=== PATIENT | male | born 1990 | race Caucasian/White ===

== ENCOUNTER 2016-11-10 08:15 | Emergency (ER) | payer MEDICAID ==
[2016-11-10 09:18] LABS: ACETAMINOPHEN < 10 ug/mL (10-30)
[2016-11-10 13:18] VITALS: BP 123/78
--- NOTE | 2016-11-10 13:46 | ER ---
DATE SEEN: 11/10/2016 CHIEF COMPLAINT: Depression. SIGECAPS [facility] MNEMONIC FOR DEPRESSION: S - The patient is suicidal. "I think I could do it. I want to show other people how bad a mental state I am. It would be a cry for help." He stated he would complete suicided by cutting himself. I - The patient has lost interest, feels helpless and hopeless. G - Guilty. "I kind of feel guilty. I feel like I could do more to help myself. I just need help. Someone needs to help me." E - Energy fluctuates. It is usually lower, and I am oversleeping. C - Concentration "crappy and frequent, and poor." A - Anxiety and loss of sexual interest. He feels anxiety is secondary to Wellbutrin. He has panic attacks periodically. I fear losing it. He has agoraphobia. Feels like I'm being judged by the people when I get in crowds. I do not go in crowds. Sometimes, I fear I might retaliate, and hurt somebody, "... because they might say something that upset me, and I would strike back. So far I have not done this." P - Psychomotor retardation, moderate. The patient has decreased energy. He is not very active, and his speech is slow and deliberate, appropriate, but quiet and soft. S - Sad, yes. He states, "I think I could do it. I just need to show people what a bad mental state I am in. If I did commit suicide, it would be out of a cry for help." The patient, when asked if he is homicidal, he said "kind of". More about when I trap myself. "...that means, I am unpleasant around people, and I have more fear of them than myself. I am afraid they might do something to me, and I would retaliate. I don't want to defend myself most of the time, but I would be forced to defend myself and I feel I could." "In general, I would like to be hospitalized because I need medical help and my medicines adjusted." Two years ago, he experienced hallucination. He heard voices from non existent people in a crowded room. FAMILY HISTORY: He has 1 brother who has psychiatric issues. He is bipolar. Another brother is healthy. Two sisters are alive and well. Mother and father are alive and well. SOCIAL HISTORY: The patient's weight is obese, 300 pounds. No history of abuse , surgery, diabetes, heart disease, high blood pressure, asthma, or other serious illnesses, hospitalizations. ALLERGIES: He does have seasonal allergies/hay fever. MEDICATIONS: 1. Nystatin. 2. Divalproex 500 mg at bedtime. 3. Aripiprazole 10 mg daily. REVIEW OF SYSTEMS: Negative. PHYSICAL EXAMINATION: VITAL SIGNS: Blood pressure 125/70, heart rate 72 and regular, respirations 18, oxygen saturation 100%, weight 136.078 kg, height 1.78 meters. CONSTITUTION: Very large, overweight, tall, very soft-spoken, mildly apprehensive man in moderate distress. HEENT: PERRLA intact. Pupils are equal appropriately. Hearing is good. Pharynx without abnormality. Mild macroglossia (goes along with his obesity). NECK: Supple. No thyromegaly or masses in the neck. LUNGS: Clear to auscultation. HEART: S1, S2. No murmur. ABDOMEN: Soft. No guarding and no abdominal discomfort. EXTREMITIES: Without edema. GENITALIA: Not checked. No self-cutting noted. DERMIS: Negative. [place] and appropriate. PSYCHIATRIC: See note above. He is oriented and also wants help. Insight is good. Deep tendon reflexes are hypoactive in upper and lower extremities. Cranial nerves II through XII intact. Oriented x3. Gait appropriate. Muscle strength normal. ASSESSMENT: Marked depression. Suicidal ideation. All features of the SIGECAPS are present. PLAN: Transfer to [facility] if bed is available. /[id number]/RAFAELA [place]
== END 2016-11-10 12:15 ==
LOC: FB.ED 08:15
DX: F32.9 Major depressive disorder, single episode, unspecified (principal); Z91.09 Other allergy status, other than to drugs and biological substances
CPT/HCPCS: 36415; 80053; 80305; 81001; 84443; 85025; 99285; G0480

== ENCOUNTER 2018-11-10 22:38 | Emergency (ER) | payer MEDICAID ==
--- NOTE | 2018-11-10 23:00 | EDM.PDOC ---
ED HPI GENERAL MEDICAL PROBLEM - General Time Seen by Provider: 11/10/18 22:58 Source of Information: Reports: Patient History Limitations: Reports: No Limitations - History of Present Illness INITIAL COMMENTS - FREE TEXT/NARRATIVE: Bitter,acidy taste in the mouth for 2 weeks. Had 1 episode of vomiting tonight. No abd pain. Has Bipolar Disease,on Wellbutrinand Depakote. Questions side effects? - Related Data Allergies Allergy/AdvReac Type Severity Reaction Status Date / Time No Known Allergies Allergy Verified 11/10/16 08:32 Home Meds: Home Meds ARIPiprazole [Aripiprazole] 10 mg PO DAILY 11/10/16 [History] Divalproex Sodium [Divalproex Sodium ER] 500 mg PO BEDTIME 11/10/16 [History] Nystatin [Nystop] 1 dose TOP ASDIRECTED PRN 11/10/16 [History] Past Medical History HEENT History: Reports: Allergic Rhinitis Gastrointestinal History: Reports: GERD Psychiatric History: Reports: ADHD, Bipolar, Depression ED ROS GENERAL - Review of Systems Review Of Systems: ROS reveals no pertinent complaints other than HPI. ED EXAM, GI/ABD - Physical Exam Exam: See Below Exam Limited By: No Limitations General Appearance: Alert, WD/WN, No Apparent Distress Eyes: Bilateral: Normal Appearance, EOMI GI/Abdominal Exam: Normal Bowel Sounds, Soft, Non-Tender, No Organomegaly, No Distention. No: Hepatomegaly, Splenomegaly Psychiatric: Normal Affect Skin Exam: Warm Departure - Departure Time of Disposition: 22:59 Disposition: Home, Self-Care 01 Clinical Impression: GERD (gastroesophageal reflux disease) - Discharge Information Instructions: Gastroesophageal Reflux Disease, Pediatric - Problem List & Annotations (1) GERD (gastroesophageal reflux disease) SNOMED Code(s): 451034257 Code(s): K21.9 - GASTRO-ESOPHAGEAL REFLUX DISEASE WITHOUT ESOPHAGITIS Status: Acute - Problem List Review Problem List Initiated/Reviewed/Updated: Yes - Assessment/Plan Plan: I advised him to start Omeprazole 20 mg bfore breakfast for 2 weeks.
[2018-11-11 01:03] VITALS: BP 134/51
== END 2018-11-10 23:15 | disposition home or self-care (01) ==
LOC: FB.ED 22:38
DX: K21.9 Gastro-esophageal reflux disease without esophagitis (principal); F31.9 Bipolar disorder, unspecified; F90.9 Attention-deficit hyperactivity disorder, unspecified type; Z79.899 Other long term (current) drug therapy
CPT/HCPCS: 99284

== ENCOUNTER 2018-11-17 16:02 | Emergency (ER) | payer MEDICAID, OTHER ==
--- NOTE | 2018-11-17 16:44 | EDM.PDOC ---
ED HPI GENERAL MEDICAL PROBLEM - General Chief Complaint: Abdominal Pain Time Seen by Provider: 11/17/18 16:15 Source of Information: Reports: Patient - History of Present Illness INITIAL COMMENTS - FREE TEXT/NARRATIVE: pt was inadvertently hit by mechanical cleaning machine on his abd while reversing, pt report lower abdominal discomfort and fear there is an internal injury or bleeding, pt appear anxious about this, denies any other associated sx , pt report Hx of anxiety and that he did not take his daily clonazepam today. R mid-abdomen Pain Score (Numeric/FACES): 2 - Related Data Allergies Allergy/AdvReac Type Severity Reaction Status Date / Time No Known Allergies Allergy Verified 11/17/18 16:05 Home Meds: Home Meds Divalproex Sodium [Divalproex Sodium ER] 500 mg PO DAILY 11/10/16 [History] buPROPion [buPROPion XL] 150 mg PO DAILY 11/11/18 [History] ClonazePAM [KlonoPIN] 0.5 mg DAILY PRN 11/17/18 [History] Omeprazole Magnesium [Prilosec Otc] 20 mg PO DAILY 11/17/18 [History] Past Medical History HEENT History: Reports: Allergic Rhinitis Gastrointestinal History: Reports: GERD Neurological History: Reports: Headaches, Chronic Psychiatric History: Reports: Anxiety, Bipolar, Depression, Panic Attack, Psych Hospitalization(s), Suicidal Ideation Endocrine/Metabolic History: Reports: Obesity/BMI 30+ - Infectious Disease History Infectious Disease History: Reports: Chicken Pox - Past Surgical History GI Surgical History: Reports: None Social & Family History - Family History Family Medical History: Noncontributory - Tobacco Use Smoking Status *Q: Never Smoker - Caffeine Use Caffeine Use: Reports: Coffee, Energy Drinks, Soda, Tea - Recreational Drug Use Recreational Drug Use: No ED ROS GENERAL - Review of Systems Review Of Systems: See Below Constitutional: Reports: No Symptoms Respiratory: Reports: No Symptoms Cardiovascular: Reports: No Symptoms GI/Abdominal: Denies: Black Stool, Bloody Stool, Constipation, Diarrhea, Distension, Hematemesis, Melena, Nausea, Vomiting : Reports: No Symptoms Musculoskeletal: Reports: No Symptoms Skin: Reports: No Symptoms ED EXAM, GI/ABD - Physical Exam Exam: See Below Exam Limited By: No Limitations General Appearance: Alert, Anxious Respiratory/Chest: No Respiratory Distress, Lungs Clear Cardiovascular: Normal Peripheral Pulses, Regular Rate, Rhythm GI/Abdominal Exam: Normal Bowel Sounds, Soft, Non-Tender, Other (pt is abese, there is no abd tendernss or contusion , BS are normal. ) Extremities: Normal Inspection, Mottled Neurological: Alert, Oriented Psychiatric: Anxious Course - Vital Signs Text/Narrative:: pt has minor abd wall contusion injury , supportive mng was recommended. pt has anxiety sx / chronic and stable, was given ativan here. Last Recorded V/S: Last Vital Signs Temp 36.8 C 11/17/18 16:02 Pulse 95 11/17/18 16:02 Resp 18 11/17/18 16:02 BP 131/76 11/17/18 16:02 Pulse Ox 99 11/17/18 16:02 Departure - Departure Time of Disposition: 16:44 Disposition: Home, Self-Care 01 Clinical Impression: Abdominal wall contusion - Discharge Information *PRESCRIPTION DRUG MONITORING PROGRAM REVIEWED*: No *COPY OF PRESCRIPTION DRUG MONITORING REPORT IN PATIENT EBONIE: No Referrals: Soha Presley NP [Primary Care Provider] -
[2018-11-17] MEDS ORDERED: LORazepam 1 MG Tab PO ONE (16:45)
[2018-11-17 17:55] VITALS: BP 121/82
== END 2018-11-17 17:12 | disposition home or self-care (01) ==
LOC: FB.ED 16:02
DX: S30.1XXA Contusion of abdominal wall, initial encounter (principal); Z79.899 Other long term (current) drug therapy; W22.8XXA Striking against or struck by other objects, initial encounter; Y99.0 Civilian activity done for income or pay
CPT/HCPCS: 99283; A9270

== ENCOUNTER 2019-03-01 02:27 | Emergency (ER) | payer MEDICAID ==
[2019-03-01 02:50] VITALS: BP 118/91; PULSE 82
--- NOTE | 2019-03-01 02:55 | EDM.PDOC ---
ED HPI GENERAL MEDICAL PROBLEM - General Chief Complaint: ENT Problem Stated Complaint: MOUTH PAIN 4DAYS Time Seen by Provider: 03/01/19 02:40 Source of Information: Reports: Patient History Limitations: Reports: No Limitations - History of Present Illness INITIAL COMMENTS - FREE TEXT/NARRATIVE: Len comes into [facility] ED with a painful L upper molar over the past 4 days. There is sensitivity to temperature, pressure, and chewing is impaired. Sxs appeared to escalate tonight, and he took an Ibuprofen 200 mg tab enroute to the ED, which improved pain to 1/10. He is requesting guidance. 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) - Related Data Allergies Allergy/AdvReac Type Severity Reaction Status Date / Time No Known Allergies Allergy Verified 11/17/18 16:05 Home Meds: Home Meds Divalproex Sodium [Divalproex Sodium ER] 500 mg PO DAILY 11/10/16 [History] buPROPion [buPROPion XL] 150 mg PO DAILY 11/11/18 [History] ClonazePAM [KlonoPIN] 0.5 mg DAILY PRN 11/17/18 [History] Omeprazole Magnesium [Prilosec Otc] 20 mg PO DAILY 11/17/18 [History] Past Medical History HEENT History: Reports: Allergic Rhinitis Gastrointestinal History: Reports: GERD Neurological History: Reports: Headaches, Chronic Psychiatric History: Reports: Anxiety, Bipolar, Depression, Panic Attack, Psych Hospitalization(s), Suicidal Ideation Endocrine/Metabolic History: Reports: Obesity/BMI 30+ - Infectious Disease History Infectious Disease History: Reports: Chicken Pox - Past Surgical History GI Surgical History: Reports: None Social & Family History - Family History Family Medical History: Noncontributory - Caffeine Use Caffeine Use: Reports: Coffee, Energy Drinks, Soda, Tea ED ROS ENT - Review of Systems Review Of Systems: ROS reveals no pertinent complaints other than HPI. ED EXAM, ENT - Physical Exam Exam: See Below Exam Limited By: No Limitations General Appearance: Alert, WD/WN, Anxious, Mild Distress, Obese Eye Exam: Bilateral Eye: EOMI, Normal Inspection, PERRL Ears: Normal External Exam Nose: Normal Inspection Mouth/Throat: Normal Inspection, Normal Gums, Normal Lips, Normal Oropharynx, Dental Pain (#15 molar), Dental Tenderness Head: Atraumatic, Normocephalic Neck: Normal Inspection, Supple Respiratory/Chest: Lungs Clear Cardiovascular: Regular Rate, Rhythm, No Murmur Back: Normal Inspection Extremities: Normal Inspection Neurological: Alert, Oriented, CN II-XII Intact, Normal Cognition, Normal Gait, Normal Reflexes, No Motor/Sensory Deficits Psychiatric: Normal Affect, Anxious Skin: Warm, Dry, Intact, Normal Color, No Rash Lymphatic: No Adenopathy Course - Vital Signs Text/Narrative:: No meds were administered in the ED. Last Recorded V/S: Last Vital Signs Temp 36.8 C 03/01/19 02:27 Pulse 82 03/01/19 02:27 Resp 18 03/01/19 02:27 BP 118/91 H 03/01/19 02:27 Pulse Ox 98 03/01/19 02:27 Departure - Departure Time of Disposition: 02:54 Disposition: Home, Self-Care 01 Condition: Fair Clinical Impression: Dental caries - Discharge Information *PRESCRIPTION DRUG MONITORING PROGRAM REVIEWED*: Not Applicable *COPY OF PRESCRIPTION DRUG MONITORING REPORT IN PATIENT EBONIE: Not Applicable Referrals: Soha Presley NP [Primary Care Provider] - - Problem List & Annotations (1) Dental caries SNOMED Code(s): 60382213 Code(s): K02.9 - DENTAL CARIES, UNSPECIFIED Status: Acute Current Visit: Yes Annotation/Comment:: I suggested Ibuprofen up to 800 mg q 6 hr prn and a visit to [facility] for x rays and disposition. - Problem List Review Problem List Initiated/Reviewed/Updated: Yes - Assessment/Plan Plan: Follow up with DDS.
== END 2019-03-01 03:00 | disposition home or self-care (01) ==
LOC: FB.ED 02:27
DX: K02.9 Dental caries, unspecified (principal); K21.9 Gastro-esophageal reflux disease without esophagitis; F41.9 Anxiety disorder, unspecified; F31.9 Bipolar disorder, unspecified; Z79.899 Other long term (current) drug therapy
CPT/HCPCS: 99282

== ENCOUNTER 2022-02-10 08:42 | Emergency (ER) | payer MEDICAID ==
[2022-02-10] MEDS ORDERED: LORazepam 2 MG/ML SDV IVPUSH STA (08:52)
[2022-02-10] MEDS ORDERED: Ondansetron 4 MG/2 ML SDV IVPUSH ONE ×2 (08:52→08:58)
[2022-02-10] MEDS ORDERED: Sodium Chloride 0.9% 10 ML Syringe FLUSH PRN (08:52)
[2022-02-10] MEDS ORDERED: Thiamine 100 MG in Sodium Chloride 0.9% 50 ML IV STA (08:53)
[2022-02-10] MEDS ORDERED: Morphine 4 MG/ML VIAL IVPUSH ONE (08:58)
[2022-02-10] MEDS ORDERED: Sodium Chloride 0.9% 1,000 ML IV SCH (09:00)
[2022-02-10 09:24] LABS: ESTIMATED GFR > 60 (>60)
[2022-02-10] MEDS ORDERED: Iopamidol 755 MG/ML 150 ML Bottle IV ONE (09:47)
[2022-02-10 21:32] VITALS: BP 95/70; PULSE 80
== END 2022-02-10 12:12 | disposition home or self-care (01) ==
LOC: FB.ED 08:42
DX: K76.0 Fatty (change of) liver, not elsewhere classified (principal); R16.1 Splenomegaly, not elsewhere classified; K21.9 Gastro-esophageal reflux disease without esophagitis; E66.9 Obesity, unspecified; Z79.899 Other long term (current) drug therapy; Z68.42 Body mass index [BMI] 45.0-49.9, adult
CPT/HCPCS: 36415; 74177; 80053; 80307; 82150; 83690; 83880; 85025; 96361; 96374; 96375; 99283; 99284-25; J2270; J2405; J7030; Q9967

== ENCOUNTER 2023-08-06 07:22 | Emergency (ER) | payer MEDICAID ==
[2023-08-06 09:17] VITALS: BP 131/77; PULSE 73
== END 2023-08-06 08:48 | disposition home or self-care (01) ==
LOC: FB.ED 07:22
DX: K59.00 Constipation, unspecified (principal); K62.89 Other specified diseases of anus and rectum; K21.9 Gastro-esophageal reflux disease without esophagitis; E66.9 Obesity, unspecified; Z68.42 Body mass index [BMI] 45.0-49.9, adult; Z79.899 Other long term (current) drug therapy
CPT/HCPCS: 82270; 99283

== ENCOUNTER 2024-05-24 20:14 | Emergency (ER) | payer MEDICAID ==
[2024-05-24] MEDS ORDERED: Sodium Chloride 0.9% 10 ML Syringe FLUSH PRN (20:25)
[2024-05-24 20:39] LABS: BASOPHILS ABSOLUTE AUTO 0.1 x10-3/uL (0.0-0.3); BASOPHILS PERCENT AUTO 0.8 % (0.3-3.8); EOSINOPHILS ABSOLUTE AUTO 0.6 x10-3/uL (0.0-0.6); EOSINOPHILS PERCENT AUTO 5.3 % (0.1-6.8); HEMATOCRIT 43.1 % (38.3-50.1); HEMOGLOBIN 14.4 g/dL (12.9-17.7); LYMPHOCYTES ABSOLUTE AUTO 3.9 x10-3/uL (0.5-4.5); LYMPHOCYTES PERCENT AUTO 33.3 % (15.8-45.3); MEAN CORPUSCULAR HEMOGLOBIN 27.9 pg (27.0-33.3); MEAN CORPUSCULAR HGB CONC 33.4 g/dL (28.7-35.3); MEAN CORPUSCULAR VOLUME 83.8 fL (80.8-98.7); MEAN PLATELET VOLUME 8.8 fL (6.7-11.0); MONOCYTES ABSOLUTE AUTO 0.9 x10-3/uL (0.0-1.2); MONOCYTES PERCENT AUTO 7.7 % (5.5-15.2); NEUTROPHILS ABSOLUTE AUTO 6.2 x10-3/uL (1.7-6.9); NEUTROPHILS PERCENT AUTO 52.9 % (40.3-71.8); PLATELET COUNT,PLT 271 x10(3)uL (117-477); RED BLOOD CELL COUNT 5.14 x10(6)uL (3.90-5.90); RED CELL DISTRIBUTION WIDTH 13.9 % (12.4-15.0); WHITE BLOOD CELL COUNT,WBC 11.7 x10-3/uL (3.2-10.1)
[2024-05-24 20:43] LABS: BLOOD UREA NITROGEN,BUN 8 mg/dL (7-18); BUN/CREATININE RATIO 8.9 (9-20); CALCIUM 8.9 mg/dL (8.6-10.2); CARBON DIOXIDE,CO2 31 mmol/L (21-32); CHLORIDE,CL 103 mmol/L (100-110); CREATININE 0.9 mg/dL (0.70-1.30); EST CRCL DRUG DOSING (CG) 118.29 mL/min; ESTIMATED GFR 114 mL/min (>60); GLUCOSE RANDOM 101 mg/dL (80-116); SODIUM,NA 142 mmol/L (135-145)
[2024-05-24 20:49] LABS: A/G RATIO 0.9; ALANINE AMINOTRANSFERASE,ALT 40 U/L (12-36); ALBUMIN 3.4 g/dL (3.5-5.2); ALKALINE PHOSPHATASE 88 IU/L (56-112); AMYLASE 42 U/L (25-115); ASPARTATE AMNIOTRANSFERASE,AST 14 IU/L (5-25); BILIRUBIN TOTAL 0.7 mg/dL (0.1-1.3); INR 0.97 (1.00-1.24); PROTEIN TOTAL,TP 7.2 g/dL (6.0-8.0); PROTHROMBIN TIME 10.1 sec (9.0-11.1); PTT,PARTIAL THROMBOPLSTIN TIME 30.9 SECONDS (24.4-33.2)
[2024-05-24 20:58] LABS: APPEARANCE,URINE CLEAR (CLEAR); BILIRUBIN,URINE NEGATIVE (NEGATIVE); COLOR,URINE YELLOW (YELLOW); GLUCOSE,URINE NORMAL (NORMAL); KETONES,URINE NEGATIVE (NEGATIVE); LEUKOCYTE ESTERASE,URINE NEGATIVE (NEGATIVE); NITRITE,URINE NEGATIVE (NEGATIVE); OCCULT BLOOD,URINE NEGATIVE (NEGATIVE); PROTEIN,URINE NEGATIVE (NEGATIVE); UROBILINOGEN,URINE NORMAL (NEGATIVE)
[2024-05-24] MEDS ORDERED: Naloxone 0.4 MG/ML SDV IVPUSH PRN (21:03)
[2024-05-24] MEDS: Morphine 2 MG/ML SYRINGE IVPUSH ONE (21:41)
[2024-05-24] MEDS: Sodium Chloride 0.9% 1,000 ML IV SCH (21:41)
[2024-05-24] MEDS: Iopamidol 755 Mg/ML 100 ML Bottle IV SCH (21:48)
[2024-05-24 23:35] VITALS: BP 107/53; PULSE 73
== END 2024-05-24 23:30 | disposition home or self-care (01) ==
LOC: FB.ED 20:14
DX: K80.50 Calculus of bile duct without cholangitis or cholecystitis without obstruction (principal); K21.9 Gastro-esophageal reflux disease without esophagitis; E66.9 Obesity, unspecified; Z79.899 Other long term (current) drug therapy; Z68.43 Body mass index [BMI] 50.0-59.9, adult
CPT/HCPCS: 36415; 74177; 80053; 81003; 82150; 83690; 85025; 85610; 85730; 96361; 96374; 99284; J2270; J7030; Q9967

== ENCOUNTER 2024-11-16 06:07 | Emergency (ER) | payer MEDICAID ==
[2024-11-16 06:56] LABS: HEMATOCRIT 42.5 % (38.3-50.1); HEMOGLOBIN 14.4 g/dL (12.9-17.7); MEAN CORPUSCULAR HEMOGLOBIN 27.9 pg (27.0-33.3); MEAN CORPUSCULAR HGB CONC 33.8 g/dL (28.7-35.3); MEAN CORPUSCULAR VOLUME 82.7 fL (80.8-98.7); MEAN PLATELET VOLUME 9.2 fL (6.7-11.0); PLATELET COUNT,PLT 287 x10(3)uL (117-477); RED BLOOD CELL COUNT 5.14 x10(6)uL (3.90-5.90); RED CELL DISTRIBUTION WIDTH 14.1 % (12.4-15.0); WHITE BLOOD CELL COUNT,WBC 16.7 x10-3/uL (3.2-10.1)
[2024-11-16 07:00] LABS: BLOOD UREA NITROGEN,BUN 11 mg/dL (7-18); CALCIUM 9.3 mg/dL (8.6-10.2); CARBON DIOXIDE,CO2 31 mmol/L (21-32); CHLORIDE,CL 101 mmol/L (100-110); EST CRCL DRUG DOSING (CG) 105.44 mL/min; ESTIMATED GFR 100 mL/min (>60); GLUCOSE RANDOM 123 mg/dL (80-116); POTASSIUM,K 3.6 mmol/L (3.5-5.3); SODIUM,NA 141 mmol/L (135-145)
[2024-11-16 07:06] LABS: A/G RATIO 0.9; ALANINE AMINOTRANSFERASE,ALT 31 U/L (12-36); ALBUMIN 3.4 g/dL (3.5-5.2); ALKALINE PHOSPHATASE 77 IU/L (56-112); ASPARTATE AMNIOTRANSFERASE,AST 12 IU/L (5-25); BILIRUBIN TOTAL 0.6 mg/dL (0.1-1.3); PROTEIN TOTAL,TP 7.4 g/dL (6.0-8.0)
[2024-11-16 07:24] LABS: LYMPHOCYTES PERCENT MAN 31 % (13-37); MONOCYTES PERCENT MAN 2 % (4-12); SEG NEUTROPHILS PERCENT MAN 67 % (46-82)
[2024-11-16 07:54] VITALS: BP 129/75; PULSE 83
== END 2024-11-16 07:54 | disposition home or self-care (01) ==
LOC: FB.ED 06:07
DX: R19.7 Diarrhea, unspecified (principal); Z79.899 Other long term (current) drug therapy
CPT/HCPCS: 36415; 80053; 85025; 86140; 99284

== ENCOUNTER 2025-02-27 20:59 | Emergency (ER) | payer MEDICAID ==
[2025-02-27] MEDS: Ondansetron 4 MG Tab.DIS PO ONE (21:33)
[2025-02-27 21:36] LABS: BASOPHILS ABSOLUTE AUTO 0.1 x10-3/uL (0.0-0.3); BASOPHILS PERCENT AUTO 0.6 % (0.3-3.8); EOSINOPHILS ABSOLUTE AUTO 0.6 x10-3/uL (0.0-0.6); EOSINOPHILS PERCENT AUTO 5.2 % (0.1-6.8); HEMATOCRIT 39.9 % (38.3-50.1); HEMOGLOBIN 13.9 g/dL (12.9-17.7); LYMPHOCYTES ABSOLUTE AUTO 3.6 x10-3/uL (0.5-4.5); LYMPHOCYTES PERCENT AUTO 30.7 % (15.8-45.3); MEAN CORPUSCULAR HEMOGLOBIN 28.2 pg (27.0-33.3); MEAN CORPUSCULAR HGB CONC 34.7 g/dL (28.7-35.3); MEAN CORPUSCULAR VOLUME 81.2 fL (80.8-98.7); MEAN PLATELET VOLUME 9.3 fL (6.7-11.0); MONOCYTES ABSOLUTE AUTO 0.9 x10-3/uL (0.0-1.2); MONOCYTES PERCENT AUTO 7.2 % (5.5-15.2); NEUTROPHILS ABSOLUTE AUTO 6.6 x10-3/uL (1.7-6.9); NEUTROPHILS PERCENT AUTO 56.3 % (40.3-71.8); PLATELET COUNT,PLT 255 x10(3)uL (117-477); RED BLOOD CELL COUNT 4.92 x10(6)uL (3.90-5.90); RED CELL DISTRIBUTION WIDTH 13.8 % (12.4-15.0); WHITE BLOOD CELL COUNT,WBC 11.8 x10-3/uL (3.2-10.1)
[2025-02-27 21:41] LABS: BLOOD UREA NITROGEN,BUN 10 mg/dL (7-18); BUN/CREATININE RATIO 11.1 (9-20); CALCIUM 9.1 mg/dL (8.6-10.2); CARBON DIOXIDE,CO2 26 mmol/L (21-32); CHLORIDE,CL 102 mmol/L (100-110); CREATININE 0.9 mg/dL (0.70-1.30); ESTIMATED GFR 114 mL/min (>60); GLUCOSE RANDOM 116 mg/dL (80-116); POTASSIUM,K 3.7 mmol/L (3.5-5.3); SODIUM,NA 135 mmol/L (135-145)
[2025-02-27 21:46] LABS: A/G RATIO 0.9; ALANINE AMINOTRANSFERASE,ALT 35 U/L (12-36); ALBUMIN 3.4 g/dL (3.5-5.2); ALKALINE PHOSPHATASE 90 IU/L (56-112); ASPARTATE AMNIOTRANSFERASE,AST 14 IU/L (5-25); BILIRUBIN TOTAL 0.7 mg/dL (0.1-1.3); PROTEIN TOTAL,TP 7.1 g/dL (6.0-8.0)
[2025-02-27 21:49] LABS: APPEARANCE,URINE CLEAR (CLEAR); BACTERIA,URINE FEW (NS); BILIRUBIN,URINE NEGATIVE (NEGATIVE); COLOR,URINE YELLOW (YELLOW); GLUCOSE,URINE NORMAL (NORMAL); KETONES,URINE NEGATIVE (NEGATIVE); LEUKOCYTE ESTERASE,URINE NEGATIVE (NEGATIVE); NITRITE,URINE NEGATIVE (NEGATIVE); OCCULT BLOOD,URINE NEGATIVE (NEGATIVE); PROTEIN,URINE NEGATIVE (NEGATIVE); RBC,URINE 0-5 (0-5); SQUAMOUS EPITHELIAL CELLS,UR FEW (NS,R,O); UROBILINOGEN,URINE 1 mg/dL (NEGATIVE); WBC,URINE 0-5 (0-5)
[2025-02-27 22:46] VITALS: BP 133/67; PULSE 80
== END 2025-02-27 22:16 | disposition home or self-care (01) ==
LOC: FB.ED 20:59
DX: B34.9 Viral infection, unspecified (principal); D72.829 Elevated white blood cell count, unspecified; R79.82 Elevated C-reactive protein (CRP); K21.9 Gastro-esophageal reflux disease without esophagitis; Z79.899 Other long term (current) drug therapy
CPT/HCPCS: 36415; 80053; 81001; 85025; 86140; 99284; Q0162

== ENCOUNTER 2025-03-14 04:49 | Emergency (ER) | payer MEDICAID ==
[2025-03-14 05:05] VITALS: BP 131/76
[2025-03-14 05:44] VITALS: PULSE 92
== END 2025-03-14 05:43 | disposition home or self-care (01) ==
LOC: FB.ED 04:49
DX: F31.81 Bipolar II disorder (principal); K21.9 Gastro-esophageal reflux disease without esophagitis; Z79.899 Other long term (current) drug therapy
CPT/HCPCS: 99284

== ENCOUNTER 2025-03-22 22:35 | Emergency (ER) | payer MEDICAID ==
[2025-03-22 22:46] VITALS: BP 151/87; PULSE 97
[2025-03-22 23:10] LABS: BASOPHILS ABSOLUTE AUTO 0.1 x10-3/uL (0.0-0.3); BASOPHILS PERCENT AUTO 0.6 % (0.3-3.8); EOSINOPHILS ABSOLUTE AUTO 0.5 x10-3/uL (0.0-0.6); EOSINOPHILS PERCENT AUTO 4.7 % (0.1-6.8); LYMPHOCYTES ABSOLUTE AUTO 3.0 x10-3/uL (0.5-4.5); LYMPHOCYTES PERCENT AUTO 30.6 % (15.8-45.3); MEAN PLATELET VOLUME 8.7 fL (6.7-11.0); MONOCYTES ABSOLUTE AUTO 0.9 x10-3/uL (0.0-1.2); MONOCYTES PERCENT AUTO 9.4 % (5.5-15.2); NEUTROPHILS ABSOLUTE AUTO 5.4 x10-3/uL (1.7-6.9); NEUTROPHILS PERCENT AUTO 54.7 % (40.3-71.8); PLATELET COUNT,PLT 240 x10(3)uL (117-477); RED BLOOD CELL COUNT 4.68 x10(6)uL (3.90-5.90); RED CELL DISTRIBUTION WIDTH 13.8 % (12.4-15.0); WHITE BLOOD CELL COUNT,WBC 9.9 x10-3/uL (3.2-10.1)
[2025-03-22 23:14] LABS: BLOOD UREA NITROGEN,BUN 9 mg/dL (7-18); CARBON DIOXIDE,CO2 29 mmol/L (21-32); CHLORIDE,CL 104 mmol/L (100-110); CREATININE 1.0 mg/dL (0.70-1.30); EST CRCL DRUG DOSING (CG) 105.44 mL/min; ESTIMATED GFR 100 mL/min (>60); GLUCOSE RANDOM 129 mg/dL (80-116); POTASSIUM,K 3.6 mmol/L (3.5-5.3); SODIUM,NA 139 mmol/L (135-145)
[2025-03-22 23:20] LABS: A/G RATIO 0.9; ALANINE AMINOTRANSFERASE,ALT 40 U/L (12-36); ASPARTATE AMNIOTRANSFERASE,AST 17 IU/L (5-25); BILIRUBIN TOTAL 0.9 mg/dL (0.1-1.3); PROTEIN TOTAL,TP 6.6 g/dL (6.0-8.0)
== END 2025-03-22 23:40 | disposition home or self-care (01) ==
LOC: FB.ED 22:35
DX: R60.0 Localized edema (principal); K21.9 Gastro-esophageal reflux disease without esophagitis; E66.9 Obesity, unspecified; Z79.899 Other long term (current) drug therapy; Z68.43 Body mass index [BMI] 50.0-59.9, adult
CPT/HCPCS: 36415; 80053; 83880; 85025; 99283; 99284